=== PATIENT | male | born 2000 | race Caucasian/White ===

== ENCOUNTER 2021-07-04 06:01 | Emergency (ER) | payer OTHER ==
[~2021-07-04] VITALS: Ht 182.9 cm; Wt 74.9 kg
--- NOTE | 2021-07-04 06:09 | PHYS DOC ---
Past History Past Medical History: No Pertinent History Past Surgical History: No Surgical History Adult General HPI HPI Patient is a 21-year-old male presenting for nausea and vomit. 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 Reports he ate a significant amount of [employer] yesterday evening at 7 PM. Approximately 6 hours later he woke up with nausea and generalized abdominal cramping. Reports he had x2 episodes of nonbloody nonbilious emesis and was eventually able to go back to sleep. Nonetheless, ongoing nausea and abdominal cramping woke him up several hours later where he experienced an additional episode of nonbloody nonbilious emesis. He woke up this morning with ongoing nausea and generalized abdominal cramping and discomfort prompting him to come in. No prior intra-abdominal abnormalities, no known sick contacts or recent fever, he is fully vaccinated against COVID-19 Review of Systems Review of Systems Fourteen body systems of review of systems have been reviewed. See HPI for pertinent positives and negative responses, other miles all other systems are negative, non-pertinent or non-contributory Physical Exam Physical Exam Constitutional: Well developed, well nourished, no acute distress, non-toxic appearance. HENT: Normocephalic, atraumatic, bilateral external ears normal, oropharynx moist, no oral exudates, nose normal. Eyes: PERRLA, EOMI, conjunctiva normal, no discharge. Neck: Normal range of motion, no tenderness, supple, no stridor. Cardiovascular: Heart rate regular, sinus rhythm, no murmurs rubs or gallops Lungs & Thorax: Bilateral breath sounds clear to auscultation Abdomen: Bowel sounds normal, soft, generalized abdominal discomfort with palpation without any rebound or guarding, no masses, no pulsatile masses. Nonsurgical abdomen, no peritoneal signs Skin: Warm, dry, no erythema, no rash. Back: No tenderness, no CVA tenderness. Extremities: No tenderness, no cyanosis, no clubbing, ROM intact, no edema. Neurologic: Alert and oriented X 3, grossly normal motor & sensory function, no focal deficits noted. Psychologic: Affect normal, judgement normal, mood normal. Current Patient Data Vital Signs Vital Signs Date Time Temp Pulse Resp B/P (MAP) Pulse Ox O2 Delivery O2 Flow Rate FiO2 07/04/21 06:13 97.5 85 14 120/64 (82) 99 Room Air Vital Signs Date Time Temp Pulse Resp B/P (MAP) Pulse Ox O2 Delivery O2 Flow Rate FiO2 07/04/21 06:13 97.5 85 14 120/64 (82) 99 Room Air Lab Results Laboratory Tests Test 07/04/21 06:22 07/04/21 06:46 White Blood Count 6.7 x10^3/uL Red Blood Count 5.29 x10^6/uL Hemoglobin 15.2 g/dL Hematocrit 44.5 % Mean Corpuscular Volume 84 fL Mean Corpuscular Hemoglobin 29 pg Mean Corpuscular Hemoglobin Concent 34 g/dL Red Cell Distribution Width 13.4 % Platelet Count 271 x10^3/uL Neutrophils (%) (Auto) 51 % Lymphocytes (%) (Auto) 41 % Monocytes (%) (Auto) 6 % Eosinophils (%) (Auto) 2 % Basophils (%) (Auto) 1 % Neutrophils # (Auto) 3.4 x10^3uL Lymphocytes # (Auto) 2.7 x10^3/uL Monocytes # (Auto) 0.4 x10^3/uL Eosinophils # (Auto) 0.1 x10^3/uL Basophils # (Auto) 0.0 x10^3/uL Sodium Level 142 mmol/L Potassium Level 3.9 mmol/L Chloride Level 102 mmol/L Carbon Dioxide Level 30 mmol/L Anion Gap 10 Blood Urea Nitrogen 12 mg/dL Creatinine 0.9 mg/dL Estimated GFR (Cockcroft-Gault) 105.5 BUN/Creatinine Ratio 13 Glucose Level 97 mg/dL Calcium Level 9.8 mg/dL Total Bilirubin 2.0 mg/dL Aspartate Amino Transf (AST/SGOT) 17 U/L Alanine Aminotransferase (ALT/SGPT) 31 U/L Alkaline Phosphatase 67 U/L Total Protein 8.1 g/dL Albumin 4.6 g/dL Albumin/Globulin Ratio 1.3 SARS-CoV-2 Antigen (Rapid) Negative Current Medications Medications (Trade) Dose Ordered Sig/[place] Route PRN Reason Start Time Stop Time Status Last Admin Dose Admin Sodium Chloride 1,000 ml @ 1,000 mls/hr 1X ONCE IV 07/04/21 07:00 07/04/21 07:59 DC 07/04/21 06:41 Ondansetron HCl (Zofran) 4 mg 1X ONCE IVP 07/04/21 07:00 07/04/21 07:01 DC 07/04/21 06:42 Sodium Chloride 1,000 ml @ 1,000 mls/hr 1X ONCE IV 07/04/21 07:00 07/04/21 07:59 DC 07/04/21 07:00 EKG EKG [] Radiology/Procedures Radiology/Procedures [] Heart Score C/O Chest Pain: No Risk Factors: Risk Factors: DM, Current or recent (<one month) smoker, HTN, HLP, family history of CAD, obesity. Risk Scores: Risk Factors: DM, Current or recent (<one month) smoker, HTN, HLP, family history of CAD, obesity. Course & Med Decision Making Course & Med Decision Making ABCs unremarkable. I disclosed entirety of ER findings and discussed most likely diagnosis of nausea and vomit likely gastroenteritis from [employer] consumption. Other diagnoses were discussed with patient such as COVID-19, pancreatitis, appendicitis and other potentially emergent intra-abdominal abnormalities but all deemed less likely causes of patient's presentation. Patient symptoms resolved with provided ER intervention that included IV fluid resuscitation and antiemetics. Plan of care discussed at length with need for close outpatient follow-up to review today's ER visit stressed. Strict return precautions were also discussed at length with good understanding verbalized by patient. Patient voiced understanding and agreement with the plan. Patient knows to come back for repeat evaluation if concerning signs or symptoms present prior to outpatient follow-up. Hemodynamically stable, ambulatory, tolerating p.o. intake, and well-appearing at time of disposition. Dragon Disclaimer Dragon Disclaimer This electronic medical record was generated, in whole or in part, using a voice recognition dictation system. Departure Departure: Impression: Primary Impression: Nausea and vomiting Disposition: HOME / SELF CARE / HOMELESS Condition: IMPROVED Referrals: PCP,UNKNOWN (PCP) Additional Instructions: You were seen for nausea and vomiting. You most likely have a viral illness wh ich should resolve in the next few days to a week. You are vaccinated against COVID-19 which is great, nonetheless given current pandemic you were tested and your rapid test with is negative with PCR test pending. Please continue supportive care practices at home with close outpatient follow-up with primary care provider as needed if your symptoms do not improve. You should return to the ED if you develop abdominal pain, fever > 100.3, black/bloody stools, black/bloody vomiting, cannot keep water down, or any other new or concerning symptoms. Scripts Ondansetron (ONDANSETRON ODT) 4 Mg Tab.rapdis 1 TAB PO PRN Q6-8HRS for nausea, #16 TAB Prov: JOVI JORDAN DO 07/04/21 JOVI JORDAN DO Jul 04, 2021 06:09
[2021-07-04 06:13] VITALS: BP 120/64
[2021-07-04 06:57] LABS: BASO % 1 % (0-3); EOS # 0.1 x10^3/uL (0.0-0.7); EOS % 2 % (0-3); HEMATOCRIT 44.5 % (39.0-53.0); HEMOGLOBIN 15.2 g/dL (13.0-17.5); LYMPH # 2.7 x10^3/uL (1.0-4.8); LYMPH % 41 % (24-48); MEAN CORPUSCULAR HEMOGLOBIN 29 pg (25-35); MEAN CORPUSCULAR HGB CONC 34 g/dL (31-37); MEAN CORPUSCULAR VOLUME 84 fL (79-100); MONO # 0.4 x10^3/uL (0.0-1.1); MONO % 6 % (0-9); NEUT # 3.4 x10^3uL (1.8-7.7); NEUT % 51 % (31-73); PLATELET COUNT 271 x10^3/uL (140-400); RED BLOOD COUNT 5.29 x10^6/uL (4.30-5.70); RED CELL DISTRIBUTION WIDTH 13.4 % (11.5-14.5); WHITE BLOOD COUNT 6.7 x10^3/uL (4.0-11.0)
[2021-07-04] MEDS ORDERED: ONDANSETRON PF 4 MG/2 ML VIAL. IVP ONE (07:00)
[2021-07-04] MEDS ORDERED: IV NORMAL SALINE 1,000ML 1,000 ML IV ONE ×2 (07:00)
[2021-07-04 07:07] LABS: CALCIUM 9.8 mg/dL (8.5-10.1); CREATININE 0.9 mg/dL (0.7-1.3); GFR 105.5; POTASSIUM 3.9 mmol/L (3.5-5.1)
[2021-07-04 07:13] LABS: ALBUMIN 4.6 g/dL (3.4-5.0); ALBUMIN/GLOBULIN RATIO 1.3 (1.0-1.7); TOTAL PROTEIN 8.1 g/dL (6.4-8.2)
[2021-07-04] MEDS ORDERED: ONDA4TAB12 PO (08:22)
== END 2021-07-04 08:29 | disposition home or self-care (01) ==
LOC: ER 06:01
DX: R11.2 Nausea with vomiting, unspecified (principal); Z20.822 Contact with and (suspected) exposure to COVID-19
CPT/HCPCS: 80053; 85025; 87426; 96361; 96374; 99283; C9803; J2405; J7030; U0003